=== PATIENT | male | born 1955 | race Caucasian/White ===

== ENCOUNTER 2016-06-01 17:48 | Emergency (ER) | payer OTHER ==
[2016-06-01] MEDS ORDERED: MAGNEVIST 15ML IV ONE (17:49)
[2016-06-01] MEDS ORDERED: Ibuprofen 400 MG TAB ONE (22:45)
== END 2016-06-01 23:37 | disposition home or self-care (01) ==
LOC: ER 17:48
CPT/HCPCS: 36415 ×2; 70553 ×2; 80053 ×2; 83036 ×2; 85025 ×2; 85610 ×2; 85652 ×2; 85730 ×2; 93005 ×2; 99284; A9579